=== PATIENT | female | born 1955 | race Caucasian/White ===

== ENCOUNTER 2016-04-18 20:45 | Emergency (ER) | payer OTHER ==
[2016-04-18] MEDS ORDERED: IOPAMIDOL 300 (61%) 100 ML VIAL IV ONE (20:46)
[2016-04-18] MEDS ORDERED: ONDANSETRON 4 MG/2ML 2 ML VIAL ONE (21:19)
[2016-04-18] MEDS ORDERED: OLANZAPINE 5 MG TABLET ONE (21:19)
[2016-04-18] MEDS ORDERED: SODIUM CHLORIDE 0.9% 1,000 ML ONE (21:19)
[2016-04-18] MEDS ORDERED: PANTOPRAZOLE SODIUM 40 MG VIAL IV ONE (21:19)
[2016-04-18 21:22] LABS: ABSOLUTE NEUTROPHIL COUNT 2.6 K/mm3 (1.8-7.7); BASO # 0.1 K/mm3 (0.0-0.2); BASO % 1.1 % (0.2-1.0); EOS # 0.4 (0.0-0.5); EOS % 7.4 % (0.9-2.9); HEMATOCRIT 40.2 % (37.0-47.0); HEMOGLOBIN 13.2 gm/l (12.0-16.0); IMM NEUT% 0.6 % (0-1); LYMPH # 1.9 (1.0-4.8); LYMPH % 34.6 % (15-45); MEAN CELL VOLUME 92.4 fl (81.0-99.0); MEAN CORPUSCULAR HEMOGLOBIN 30.3 pg (27.0-31.0); MEAN CORPUSCULAR HGB CONC 32.8 g/dl (33.0-37.0); MEAN PLATELET VOLUME 8.9 fl (7.4-10.4); MONO # 0.4 (0.0-0.8); MONO % 7.8 % (4-12); NEUT % 48.5 % (43-75); PLATELET COUNT 239 K/mm3 (130-400); RED CELL DISTRIBUTION WIDTH 14.5 % (11.5-14.5)
[2016-04-18 21:34] LABS: INR 0.89; PROTHROMBIN TIME 9.2 SECONDS (9.3-11.4)
[2016-04-18 21:37] LABS: ALB/GLOB RATIO 1.3 (>1.0); ALBUMIN 4.2 gm/dL (3.5-5.7); CALCIUM 9.3 mg/dL (8.6-10.3)
[2016-04-18] MEDS ORDERED: HYDROMORPHONE HCL 1 MG/ML SYRINGE ONE (23:16)
--- NOTE | 2016-04-19 07:18 | RAD ---
CHEST 2 VIEWS HISTORY: Difficulty breathing. Frontal and lateral chest radiographs dated 04/18/2016. COMPARISON: None. FINDINGS: LUNG VOLUMES: Mild hyperinflation. FOCAL AIRSPACE OPACITY: No gross airspace consolidation. PLEURAL EFFUSION: None. CARDIOMEDIASTINAL SILHOUETTE: Nonenlarged. Prominent hiatal hernia. PNEUMOTHORAX: None identified. OSSEOUS STRUCTURES: No grossly destructive lesions. IMPRESSION: No gross airspace disease, pulmonary edema, or pneumothorax. Mild hyperinflation, which can indicate obstructive pulmonary disease. Prominent hiatal hernia.
--- NOTE | 2016-04-19 08:16 | CT ---
HEAD CT WITHOUT CONTRAST HISTORY: Anxiety, neck pain, headache. No intravenous contrast administered. Contiguous axial images acquired from skull base to vertex. COMPARISON:None. TECHNICAL FACTORS: Minor motion artifact. BRAIN VOLUME:Grossly unremarkable for patient age. VENTRICULAR SIZE:No gross ventriculomegaly. FOCAL MASS EFFECT:None. ACUTE INTRACRANIAL HEMORRHAGE:None. CALVARIUM:Grossly intact. VISIBLE PARANASAL SINUSES AND MASTOID AIR CELLS: Partial filling of the right maxillary sinus with mucosal thickening of the left ethmoid air cells. ORBITS: Suggested scleral banding on the right. IMPRESSION: 1. No gross mass effect, ventriculomegaly, or acute intracranial hemorrhage. 2. Possible right maxillary sinusitis. 3. Evidence of right orbital surgery. Preliminary report relayed to the Emergency Medicine medical service by Dr. Meyers on 04/18/2016 at 2226 hours.
--- NOTE | 2016-04-19 08:35 | CT ---
CHEST CT WITH CONTRAST HISTORY: Difficulty breathing, back pain. TECHNIQUE: Following the administration of 80 mL Isovue-300 intravenous contrast, contiguous axial images were acquired from the thoracic inlet to the diaphragmatic hiatus. COMPARISON: Correlation against plain films of the same date.. FINDINGS: THORACIC AORTA: Normal caliber. No evidence of dissection. LUNGS: Minor airspace abnormality of the posterior right upper lobe with scattered innumerable subcentimeter nodules. A 1 cm nodule of the left lower lobe is noted. No gross airspace consolidation noted.. ABELARDO AND MEDIASTINUM: Complex intrathoracic herniation of the stomach with partial mesenteritis axial rotation. There is distal esophageal wall thickening worrisome for esophagitis. Multiple calcified lymph nodes are compatible with prior granulomatous exposure including a right hilar lymph node measuring 1.1 cm in width and subcarinal lymph node measuring 1.2 cm in width.. MAJOR AIRWAYS: Grossly unremarkable. AXILLAE: No grossly enlarged lymph nodes. UPPER ABDOMEN: Findings of renal cortical scarring with nonobstructive left renal calculus, 3 mm in size. OSSEOUS STRUCTURES: No grossly destructive lesions. . IMPRESSION: 1. Intrathoracic herniation of the stomach. Distal esophageal wall thickening compatible esophagitis. 2. Innumerable pulmonary nodules which may be inflammatory, granulomatous, or neoplastic in origin. At minimum recommend 3 month follow-up. 3. Calcified lymph nodes compatible with prior granulomatous exposure. 4. Minimal airspace abnormality at the right upper lobe, pneumonia is possible.. 5. Incompletely depicted renal cortical scarring with nonobstructive left renal calculus, 3 mm in size. Preliminary report relayed to the Emergency Medicine medical service by report on 04/19/2016 at 0040 hours.
== END 2016-04-19 01:07 | disposition home or self-care (01) ==
LOC: ED 20:45
DX: G44.209 Tension-type headache, unspecified, not intractable (principal); K29.70 Gastritis, unspecified, without bleeding; F41.9 Anxiety disorder, unspecified; Z88.2 Allergy status to sulfonamides
CPT/HCPCS: 85025; 80053; 85610; 84484; 71020; 70450; 71260; 96375 ×2; 99284 ×2; 96374; J1170; C9113; J2405; A9270; J7030; Q9967